=== PATIENT | female | born 2000 | race Caucasian/White ===

== ENCOUNTER 2024-03-30 19:53 | Observation (INO) | payer OTHER ==
[~2024-03-30] VITALS: Ht 165.1 cm; Wt 94.5 kg
[~2024-03-30 19:53] MED LIST: CEFDINIR300 MG PO; DAYTRONA
[2024-03-30 20:50] VITALS: BP 124/78; PULSE 88; RESP 18; TEMP 98.3; O2SAT 100
[2024-03-30] MEDS ORDERED: CONCERTA18 MG PO (21:22)
[2024-03-30] MEDS ORDERED: ZOLOFT50 MG PO (21:22)
[2024-03-30] MEDS: DEXTROSE 5%/0.9% SOD CHL 1,000 ML IV SCH (21:48)
[2024-03-30] MEDS: KETOROLAC TROMETHAMINE 30 MG/ML VIAL IV PRN (21:49)
[2024-03-30] MEDS: Morphine 2mg Syringe 2 MG/ML SYR IV PRN (23:25)
[2024-03-30] MEDS: ONDANSETRON HCL INJ 2MG/ML 2ML 2 MG/ML VIAL IV PRN (23:26)
[2024-03-30 23:53] VITALS: BP 124/78; PULSE 88; RESP 18; TEMP 98.3; O2SAT 100
[2024-03-30 23:55] VITALS: BP 124/78; PULSE 88; RESP 18; TEMP 98.3; O2SAT 100
[2024-03-30 23:59] VITALS: BP 111/58; PULSE 80; RESP 16; TEMP 97.9; O2SAT 100
[2024-03-31] VITALS (9 sets, daily range): BP systolic 103–125; BP diastolic 58–69; PULSE 78–94; RESP 17–20; TEMP 97.5–98.3; O2SAT 97–100
[2024-03-31] MEDS ORDERED: DOCUSATE SODIUM 100 MG CAP PO PRN (00:15)
[2024-03-31] MEDS ORDERED: DIPHENHYDRAMINE HCL 25 MG CAP PO PRN (00:15)
[2024-03-31] MEDS ORDERED: ALBUTEROL/IPRATROPIUM 3 ML NEB NEB PRN (00:15)
[2024-03-31] MEDS ORDERED: POTASSIUM CHLORIDE 20 MEQ TAB CR PO PRN (00:15)
[2024-03-31] MEDS ORDERED: MELATONIN 5 MG TABLET PO PRN (00:15)
[2024-03-31] MEDS ORDERED: DEXTROSE 50% SYRINGE 50 ML IV PRN (00:15)
[2024-03-31] MEDS ORDERED: SIMETHICONE 80 MG CHEW PO PRN (00:15)
[2024-03-31] MEDS ORDERED: LIDOCAINE 4% PATCH TP PRN (00:15)
[2024-03-31] MEDS ORDERED: BENZONATATE 100 MG CAP PO PRN (00:15)
[2024-03-31] MEDS ORDERED: HYDRALAZINE HCL 20 MG/ML VIAL IV PRN (00:15)
[2024-03-31 05:30] LABS: BASOPHILS % 0.3 % (0.0-1.0); EOSINOPHILS # (AUTO) 0.1 (0.0-0.4); HEMATOCRIT 37.9 % (34.2-44.1); HEMOGLOBIN 12.9 g/dL (12.0-16.0); LYMPHOCYTES # (AUTO) 2.2 (1.0-3.2); LYMPHOCYTES % 25.5 % (18.0-39.1); MEAN CORPUSCULAR HEMOGLOBIN 31.9 pg (28-32); MEAN CORPUSCULAR VOLUME 93.6 fL (81-99); MONOCYTES # (AUTO) 0.7 (0.2-0.8); MONOCYTES % 8.5 % (4.4-11.3); NEUTROPHILS # (AUTO) 5.5 (2.1-6.9); NEUTROPHILS % 64.6 % (38.7-80.0); PLATELET COUNT 213 x10e3/uL (140-360); RED BLOOD COUNT 4.05 x10e6/uL (3.6-5.1); RED CELL DISTRIBUTION WIDTH 11.3 % (11.7-14.4); WHITE BLOOD COUNT 8.58 x10e3/uL (4.8-10.8)
[2024-03-31 05:56] LABS: ANION GAP 13.8 mmol/L (8-16); CALCIUM 8.6 mg/dL (8.4-10.2); CREATININE, SERUM 0.8 mg/dL (0.57-1.11); POTASSIUM 3.8 mmol/L (3.5-5.1)
[2024-03-31] MEDS: ACETAMINOPHEN 325 MG TAB PO PRN (07:16)
[2024-03-31] MEDS: PANTOPRAZOLE SOD 40 MG TABEC PO SCH (07:30)
[2024-03-31] MEDS ORDERED: SERTRALINE HCL 50 MG TAB PO SCH (09:00)
[2024-03-31] MEDS ORDERED: METHYLPHENIDATE HCL PO SCH (09:00)
[2024-03-31] MEDS ORDERED: ONDANSETRON HCL INJ 2MG/ML 2ML 2 MG/ML VIAL ONE (12:31)
[2024-03-31] MEDS ORDERED: SUCCINYLCHOLINE CHLORIDE 20 MG/ML 10ML VIAL ONE (12:31)
[2024-03-31] MEDS ORDERED: DEXAMETHASONE SOD PHOS INJ 4 MG/ML SDV ONE (12:31)
[2024-03-31] MEDS ORDERED: KETOROLAC TROMETHAMINE 30 MG/ML VIAL ONE (12:31)
[2024-03-31] MEDS ORDERED: PROPOFOL IV EMULSION 10 MG/ML 20 ML VIAL ONE (12:31)
[2024-03-31] MEDS ORDERED: METOCLOPRAMIDE HCL 10 MG/2ML VIAL ONE (12:31)
[2024-03-31] MEDS ORDERED: SEVOFLURANE INHAL SOLN 250 ML PEN BTL ONE (12:31)
[2024-03-31] MEDS ORDERED: LIDOCAINE HCL 2% LOCAL INJ 5 ML SDV VIAL INJ ONE (12:31)
[2024-03-31] MEDS ORDERED: ROCURONIUM BROMIDE 10 MG/ML 5ML VIAL IV ONE (12:31)
[2024-03-31] MEDS ORDERED: BUPIVACAINE 0.25% 30ML SDV ONE (16:25)
[2024-03-31] MEDS ORDERED: Morphine 10mg syringe 10 MG/ML INJ ONE (17:40)
[2024-03-31] MEDS ORDERED: FENTANYL CITRATE/PF 100MCG/2 ML INJ ONE (17:40)
[2024-03-31] MEDS ORDERED: SUGAMMADEX SODIUM 200 MG/2 ML VIAL IV ONE (17:53)
[2024-03-31] MEDS: HYDROCODONE/APAP 7.5MG-325MG 1 EA TAB PO PRN (21:15)
[2024-04-01] VITALS (7 sets, daily range): BP systolic 104–121; BP diastolic 51–70; PULSE 75–95; RESP 16–20; TEMP 97.7–98.3; O2SAT 95–100
[2024-04-01 05:17] LABS: BASOPHILS % 0.1 % (0.0-1.0); HEMATOCRIT 38.2 % (34.2-44.1); HEMOGLOBIN 13.1 g/dL (12.0-16.0); LYMPHOCYTES % 12.2 % (18.0-39.1); MEAN CORPUSCULAR HEMOGLOBIN 32.4 pg (28-32); MEAN CORPUSCULAR HGB CONC 34.3 g/dL (31-35); MEAN CORPUSCULAR VOLUME 94.6 fL (81-99); MONOCYTES # (AUTO) 0.3 (0.2-0.8); NEUTROPHILS # (AUTO) 6.9 (2.1-6.9); NEUTROPHILS % 84.5 % (38.7-80.0); PLATELET COUNT 235 x10e3/uL (140-360); RED BLOOD COUNT 4.04 x10e6/uL (3.6-5.1); RED CELL DISTRIBUTION WIDTH 10.9 % (11.7-14.4); WHITE BLOOD COUNT 8.22 x10e3/uL (4.8-10.8)
[2024-04-01 05:37] LABS: ANION GAP 13.1 mmol/L (8-16); CALCIUM 8.4 mg/dL (8.4-10.2); CREATININE, SERUM 0.8 mg/dL (0.57-1.11); POTASSIUM 4.1 mmol/L (3.5-5.1)
[2024-04-01] MEDS: HYDROMORPHONE 1MG/1ML INJ IV PRN (07:40)
[2024-04-01] MEDS ORDERED: KETOROLAC TROMETHAMINE 30 MG/ML VIAL IV PRN (15:45)
== END 2024-04-01 18:35 | disposition home or self-care (01) ==
LOC: MED/SURG3 20:38
PROVIDERS: ADMIT Internal Medicine; ATTEND Internal Medicine
DX: K35.80 Unspecified acute appendicitis (principal); F90.9 Attention-deficit hyperactivity disorder, unspecified type; F41.9 Anxiety disorder, unspecified; F32.A Depression, unspecified; E66.01 Morbid (severe) obesity due to excess calories; Z68.34 Body mass index [BMI] 34.0-34.9, adult; Z79.899 Other long term (current) drug therapy; Z91.041 Radiographic dye allergy status
CPT/HCPCS: 36415 ×2; 44970; 80048 ×2; 85025 ×2; 88304; 94799 ×2; C1766; G0378 ×3; J1170; J1885 ×2; J2270 ×2; J2405 ×3; J2543 ×3; J7042 ×3; S0164; J0330; J1100; J2001; J2765

== ENCOUNTER 2024-04-03 11:13 | Emergency (ER) | payer OTHER ==
[~2024-04-03] VITALS: Ht 165.1 cm; Wt 93.0 kg
[~2024-04-03 11:13] MED LIST changes: +CONCERTA18 MG PO; +ZOLOFT50 MG PO
[2024-04-03 11:48] LABS: BILIRUBIN,URINE NEGATIVE (NEGATIVE); CLARITY,URINE SL CLOUDY (CLEAR); COLOR,URINE YELLOW (YELLOW); GLUCOSE, URINE NEGATIVE (NEGATIVE); KETONES,URINE NEGATIVE (NEGATIVE); LEUKOCYTE ESTERASE ,URINE NEGATIVE (NEGATIVE); NITRITE,URINE NEGATIVE (NEGATIVE); PH,URINE 7 (5 - 7); PROTEIN,URINE DIPSTICK NEGATIVE (NEGATIVE); URINE UROBILINOGEN 0.2 mg/dL (0.2 - 1)
[2024-04-03 11:59] LABS: BACTERIA,URINE MODERATE /HPF; EPITHELIAL CELLS,URINE MODERATE /LPF; RBC,URINE 0-5 /HPF (0-5); WBC,URINE (MAN) 0-5 /HPF (0-5)
[2024-04-03 12:15] LABS: BASOPHILS % 0.4 % (0.0-1.0); EOSINOPHILS % 0.6 % (0.0-6.0); HEMOGLOBIN 14.5 g/dL (12.0-16.0); LYMPHOCYTES # (AUTO) 2.6 (1.0-3.2); LYMPHOCYTES % 36.7 % (18.0-39.1); MEAN CORPUSCULAR HEMOGLOBIN 32.5 pg (28-32); MEAN CORPUSCULAR HGB CONC 35.4 g/dL (31-35); MEAN CORPUSCULAR VOLUME 91.9 fL (81-99); MONOCYTES # (AUTO) 0.6 (0.2-0.8); NEUTROPHILS # (AUTO) 3.8 (2.1-6.9); NEUTROPHILS % 54.2 % (38.7-80.0); PLATELET COUNT 267 x10e3/uL (140-360); RED BLOOD COUNT 4.46 x10e6/uL (3.6-5.1); RED CELL DISTRIBUTION WIDTH 10.9 % (11.7-14.4); WHITE BLOOD COUNT 7.03 x10e3/uL (4.8-10.8)
[2024-04-03] MEDS: SODIUM CHLORIDE 0.9% 1000ML 1,000 ML IV STA (12:52)
[2024-04-03 12:53] LABS: ALBUMIN 4.1 g/dL (3.5-5.0); ALBUMIN/GLOBULIN RATIO 1.5 (0.8-2.0); ANION GAP 14.9 mmol/L (8-16); BILIRUBIN,TOTAL 0.4 mg/dL (0.2-1.2); CALCIUM 9.8 mg/dL (8.4-10.2); CREATININE, SERUM 0.84 mg/dL (0.57-1.11); POTASSIUM 3.9 mmol/L (3.5-5.1); TOTAL PROTEIN 6.9 g/dL (6.5-8.1)
[2024-04-03 12:55] VITALS: TEMP 98.4
[2024-04-03 13:45] VITALS: PULSE 90; RESP 16; O2SAT 100
== END 2024-04-03 15:04 | disposition home or self-care (01) ==
LOC: ER 11:18
DX: G89.18 Other acute postprocedural pain (principal); N83.201 Unspecified ovarian cyst, right side; K76.0 Fatty (change of) liver, not elsewhere classified
CPT/HCPCS: 36415; 74176; 80053; 81001; 81025; 85025; 87086; 99284; J7030